=== PATIENT | male | born 1980 | race Caucasian/White ===

== ENCOUNTER 2023-10-16 08:48 | Observation (INO) ==
--- NOTE | 2023-10-16 09:00 | Emergency Department Note ---
ED Provider Note History of Present Illness Chief Complaint: Wound Stated Complaint: SPLIT EAR IN HALF Time Seen by Provider: 10/16/23 09:00 This is a 43-year-old male with history of hypertension who presents to the emergency department with a right ear laceration, right-sided head pain, secondary to an injury that occurred at work. He works at [employer]. He states that he was carrying something up a ladder. At the top of the ladder was a concrete access point. His hand missed the last rung at the top of the ladder and he fell backwards, hit his right ear/right head off the concrete opening/metal beam, and then fell around 8 feet to the ground. He landed on his right side. He does not believe he hit his head off the ground. No loss of consciousness. He notes a laceration to his right ear which has been bleeding. He has some pain in this region. Has not noticed any neck pain, back pain, chest pain, shortness of breath, abdominal pain. He can feel waves of nausea, and going now. Denies any numbness tingling or weakness in his upper or lower extremities. Has been able to walk. Does not take blood thinners. Home Medications Medication Instructions Recorded Confirmed Type escitalopram oxalate 10 mg tablet 10 mg PO DAILY #90 tabs 09/06/23 10/16/23 Rx cetirizine 10 mg tablet (Zyrtec) 10 mg PO DAILY PRN Allergy Symptoms 09/11/23 10/16/23 History telmisartan 40 mg tablet 40 mg PO DAILY #90 tabs 10/04/23 10/16/23 Rx amoxicillin 875 mg-potassium 1 tab PO Q12H facial laceration 10/16/23 Rx clavulanate 125 mg tablet #20 tabs hydrocodone 5 mg-acetaminophen 325 1 tab PO Q4H PRN pain #14 tabs 10/16/23 Rx mg tablet Allergies Allergy/AdvReac Type Severity Reaction Status Date / Time bee venom protein (honey bee) Allergy Mild Verified 10/16/23 15:12 No Known Drug Allergies Allergy Unknown Verified 10/16/23 15:12 Past Med/Surg History Medical History (Updated 10/16/23 @ 14:24 by Kevin Valenzuela MD) Encounter for pre-operative examination Alcohol use Tobacco dependence due to chewing tobacco SHAHIDA (obstructive sleep apnea) Central serous retinopathy Anxiety Hypertension Surgical History No pertinent past surgical history Family History Father Lung cancer Grandfather Lung cancer Denies family history of Ovarian cancer Prostate cancer Myocardial infarction Breast cancer Colorectal cancer Social History Smoking Status: Current every day smoker Tobacco Type: Smokeless Tobacco (Dip or Chew) Age Quit Using Tobacco: 29; packs per day: 1; Cigarettes Per Day: currently chews; Do You Dip or Chew Tobacco: Yes; Hx Alcohol Use: Yes Alcohol type: beer Alcohol Intake Frequency: 4 or More x per/Week Alcohol Intake Frequency Comment: nightly Hx Substance Use: No Preferred Language: Norwegian Visual Impairment: No Limitations Hearing Ability: Normal 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 Beliefs That Will Affect Care: None marital status: Current Living Situation: Spouse Current Living Situation Comment: lives w/ spouse kids current occupational status: employed current occupation: [employer] How many Children do You have: 2 Feels Safe at Home: Yes Diet: regular caffeine: Yes during the past year weight has: remained stable Dental Care, Regularly: Yes Physical Activity Frequency: Daily Physical Exam Vital Signs Vital Signs - 24 hr 10/16/23 08:51 10/16/23 09:59 10/16/23 10:00 Temperature 98.2 F Temperature Source Temporal Artery Scan Pulse Rate 106 H 89 92 H Pulse Rate [Apical] Pulse Rate from SpO2 Sensor 89 90 Respiratory Rate 14 20 20 Respiratory Effort / Characteristics Respiratory Depth Blood Pressure 172/117 H Blood Pressure [Left Arm] Blood Pressure [Right Arm] Blood Pressure Mean 135 Blood Pressure Mean [Left Arm] Blood Pressure Mean [Right Arm] Blood Pressure Position [Right Arm] Pulse Oximetry 97 97 96 Oxygen Delivery Method Room Air Sepsis New/Unexplained Change in Mental Status No Sepsis Action Taken by Nursing No Action Required 10/16/23 10:02 10/16/23 10:10 10/16/23 10:20 Temperature Temperature Source Pulse Rate 91 H 87 88 Pulse Rate [Apical] Pulse Rate from SpO2 Sensor 87 88 Respiratory Rate 20 19 Respiratory Effort / Characteristics Respiratory Depth Blood Pressure Blood Pressure [Left Arm] Blood Pressure [Right Arm] Blood Pressure Mean Blood Pressure Mean [Left Arm] Blood Pressure Mean [Right Arm] Blood Pressure Position [Right Arm] Pulse Oximetry 95 95 Oxygen Delivery Method Sepsis New/Unexplained Change in Mental Status Sepsis Action Taken by Nursing 10/16/23 10:30 10/16/23 10:40 10/16/23 10:50 Temperature Temperature Source Pulse Rate 90 87 78 Pulse Rate [Apical] Pulse Rate from SpO2 Sensor 93 H 87 82 Respiratory Rate 26 H 18 23 Respiratory Effort / Characteristics Respiratory Depth Blood Pressure Blood Pressure [Left Arm] Blood Pressure [Right Arm] Blood Pressure Mean Blood Pressure Mean [Left Arm] Blood Pressure Mean [Right Arm] Blood Pressure Position [Right Arm] Pulse Oximetry 94 94 95 Oxygen Delivery Method Sepsis New/Unexplained Change in Mental Status Sepsis Action Taken by Nursing 10/16/23 11:00 10/16/23 11:14 10/16/23 11:20 Temperature Temperature Source Pulse Rate 85 Pulse Rate [Apical] Pulse Rate from SpO2 Sensor 85 88 93 H Respiratory Rate 18 Respiratory Effort / Characteristics Respiratory Depth Blood Pressure Blood Pressure [Left Arm] Blood Pressure [Right Arm] Blood Pressure Mean Blood Pressure Mean [Left Arm] Blood Pressure Mean [Right Arm] Blood Pressure Position [Right Arm] Pulse Oximetry 94 92 96 Oxygen Delivery Method Sepsis New/Unexplained Change in Mental Status Sepsis Action Taken by Nursing 10/16/23 11:30 10/16/23 11:40 10/16/23 11:50 Temperature Temperature Source Pulse Rate 99 H 94 H 88 Pulse Rate [Apical] Pulse Rate from SpO2 Sensor 97 H 98 H 90 Respiratory Rate 13 23 12 Respiratory Effort / Characteristics Respiratory Depth Blood Pressure Blood Pressure [Left Arm] Blood Pressure [Right Arm] Blood Pressure Mean Blood Pressure Mean [Left Arm] Blood Pressure Mean [Right Arm] Blood Pressure Position [Right Arm] Pulse Oximetry 95 95 95 Oxygen Delivery Method Sepsis New/Unexplained Change in Mental Status Sepsis Action Taken by Nursing 10/16/23 12:05 10/16/23 12:10 10/16/23 12:30 Temperature Temperature Source Pulse Rate 91 H 91 H 86 Pulse Rate [Apical] Pulse Rate from SpO2 Sensor 90 88 88 Respiratory Rate 21 15 23 Respiratory Effort / Characteristics Respiratory Depth Blood Pressure Blood Pressure [Left Arm] Blood Pressure [Right Arm] Blood Pressure Mean Blood Pressure Mean [Left Arm] Blood Pressure Mean [Right Arm] Blood Pressure Position [Right Arm] Pulse Oximetry 94 94 95 Oxygen Delivery Method Sepsis New/Unexplained Change in Mental Status Sepsis Action Taken by Nursing 10/16/23 13:00 10/16/23 13:11 10/16/23 13:11 Temperature Temperature Source Pulse Rate 83 92 H Pulse Rate [Apical] Pulse Rate from SpO2 Sensor 85 90 Respiratory Rate 24 13 Respiratory Effort / Characteristics Respiratory Depth Blood Pressure 136/88 Blood Pressure [Left Arm] Blood Pressure [Right Arm] Blood Pressure Mean 103 Blood Pressure Mean [Left Arm] Blood Pressure Mean [Right Arm] Blood Pressure Position [Right Arm] Pulse Oximetry 94 94 Oxygen Delivery Method Sepsis New/Unexplained Change in Mental Status Sepsis Action Taken by Nursing 10/16/23 13:12 10/16/23 13:30 10/16/23 14:00 Temperature Temperature Source Pulse Rate 83 81 Pulse Rate [Apical] 93 H Pulse Rate from SpO2 Sensor 83 81 Respiratory Rate 15 7 L 13 Respiratory Effort / Characteristics Non-Labored Respiratory Depth Normal Blood Pressure Blood Pressure [Left Arm] 136/88 Blood Pressure [Right Arm] Blood Pressure Mean Blood Pressure Mean [Left Arm] 104 Blood Pressure Mean [Right Arm] Blood Pressure Position [Right Arm] Pulse Oximetry 96 94 96 Oxygen Delivery Method Room Air Sepsis New/Unexplained Change in Mental Status Sepsis Action Taken by Nursing 10/16/23 14:54 Temperature 98.6 F Temperature Source Oral Pulse Rate Pulse Rate [Apical] 95 H Pulse Rate from SpO2 Sensor Respiratory Rate 18 Respiratory Effort / Characteristics Respiratory Depth Blood Pressure Blood Pressure [Left Arm] Blood Pressure [Right Arm] 135/88 Blood Pressure Mean Blood Pressure Mean [Left Arm] Blood Pressure Mean [Right Arm] 103 Blood Pressure Position [Right Arm] Semi-fowlers Pulse Oximetry 95 Oxygen Delivery Method Room Air Sepsis New/Unexplained Change in Mental Status Sepsis Action Taken by Nursing CONSTITUTIONAL: Well developed, well nourished, minimally uncomfortable, otherwise nontoxic HEAD: There is tenderness in the right skull/temporal region. EYES: PERRL, conjunctivae normal, extraocular muscles intact. No nystagmus EARS/NOSE/MOUTH/THROAT: Right external ear with a large gaping horizontal through and through laceration beginning just superior to the anterior tragus, extending through the helix and antihelix with persistent bleeding. The cartilage is also lacerated. There is a small amount of hematoma/soft tissue swelling superior to the laceration. No discharge or hemotympanum on the left side. Nose with no injury or epistaxis. No dental abnormalities. No oral injuries. No TMJ tenderness or dysfunction NECK: No spinous process tenderness. Placed in c-collar. RESPIRATORY: Breathing unlabored and symmetric. Lungs clear to auscultation bilaterally. CARDIOVASCULAR: Tachycardic rate and regular rhythm. No murmurs, rubs, or gallops. CHEST: Nontender, no crepitus or ecchymosis. ABDOMEN: Soft, nontender. No masses or ecchymosis. No rigidity. No CVA tenderness bilaterally. MUSCULOSKELETAL: Moves bilateral upper and lower extremities at all joints without pain or difficulty. Back: no thoracic, lumbar, or sacral midline tenderness noted, no step-off deformities. Pelvis stable, nontender SKIN: [place], warm, dry. NEUROLOGIC: Alert and oriented x 3. GCS 15. Gaze is conjugate. Speech is normal. Visual palsy. No sensory deficits in bilateral upper or lower extremities. PSYCHIATRIC: Appropriate. Normal affect. Course Administered Medications Sodium Chloride (Nss) 1,000 mls @ 125 mls/hr IV .Q8H NATASHA Stop: 11/15/23 12:29 Last Infusion: 10/16/23 14:59 Dose: 0 mls/hr Documented By: Admin: 10/16/23 12:26 Dose: 125 mls/hr Documented By: GABRIELLA Lactated Ringer's (Lr) 1,000 mls @ 15 mls/hr IV .Q24H NATASHA Stop: 11/15/23 14:59 Last Admin: 10/16/23 14:58 Dose: 15 mls/hr Documented By: POOJA Discontinued Medications Cefazolin Sodium (Ancef 2000mg) 2,000 mg in 15 mls @ 3.75 mls/min IV NOW STA Stop: 10/16/23 12:24 Last Admin: 10/16/23 12:26 Dose: 3.75 mls/min Documented By: GABRIELLA Ioversol (Optiray 320 500ml) 94 ml IV ONCE ONE Stop: 10/16/23 09:48 Last Admin: 10/16/23 09:48 Dose: 94 ml Documented By: FIOR Lidocaine HCl (Xylocaine 1%/Sod Bicarb 20 Ml Vial) 20 ml INFIL NOW ONE Stop: 10/16/23 09:19 Last Admin: 10/16/23 12:27 Dose: Not Given Documented By: GABRIELLA Morphine Sulfate (Morphine Sulfate 4 Mg/Ml 1 Ml Carp\Vial) 4 mg IV NOW STA Stop: 10/16/23 09:18 Last Admin: 10/16/23 10:00 Dose: 4 mg Documented By: CAROLINA Ondansetron HCl (Ondansetron Inj 2 Mg/Ml 2 Ml Vial) 4 mg IV NOW STA Stop: 10/16/23 09:18 Last Admin: 10/16/23 10:00 Dose: 4 mg Documented By: CAROLINA Medical Decision Making Differential Diagnosis Fracture, dislocation, subluxation, contusion, hematoma, laceration, auricular hematoma, intracranial hemorrhage, solid organ injury, pneumothorax, hemothorax, pulmonary contusion, other pathology Laboratory Data 10/16/23 09:25 10/16/23 09:25 Lab Results 10/16/23 10/16/23 10/16/23 Range/Units 09:25 09:27 11:08 WBC 6.28 (4.8-10.8) K/ul RBC 4.70 (4.70-6.10) M/uL Hgb 14.3 (14.0-18.0) g/dl POC Hgb 13.9 L (14.0-18.0) g/dl Hct 41.4 L (42.0-52.0) % POC Hct 41 L (42-52) % MCV 88.1 (80.0-100.0) fL MCH 30.4 (25.0-34.0) pg MCHC 34.5 (32.0-36.0) g/dL RDW Std Deviation 41.5 (36.4-46.3) fL RDW Coeff of Pal 12.9 (11.5-14.5) % Plt Count 232 (130-400) K/uL MPV 9.1 L (9.4-12.4) fL Immature Gran % (Auto) 0.8 % Neut % (Auto) 53.5 % Lymph % (Auto) 38.1 % Citrus % (Auto) 6.7 % Eos % (Auto) 0.6 % Baso % (Auto) 0.3 % Neut # (Auto) 3.36 (1.40-6.50) K/uL Lymph # (Auto) 2.39 (1.20-3.40) K/uL Citrus # (Auto) 0.42 (0.11-0.59) K/uL Eos # (Auto) 0.04 (0.00-0.50) K/uL Baso # (Auto) 0.02 (0.00-0.20) K/uL Immature Gran # (Auto) 0.05 (0.01-0.20) K/uL PT 10.8 (9.0-12.0) Seconds INR 1.0 (0.9-1.1) APTT 30 (21-31) Seconds PTT Ratio 1.1 POC Sodium 139 (135-144) mmol/L Sodium 139 (136-145) mmol/L POC Potassium 3.8 (3.3-5.0) mmol/L Potassium 3.8 (3.5-5.1) mmol/L POC Chloride 101 (101-112) mmol/L Chloride 102 (98-107) mmol/L Carbon Dioxide 26 (21-32) mmol/L POC Total CO2 25 (24-31) mmol/L Anion Gap 11 (3-11) POC Anion Gap 18.0 (16-25) mmol/L POC BUN 14 (7-18) mg/dl BUN 15 (6-23) mg/dl Creatinine 0.88 (0.6-1.4) mg/dl POC Creatinine 0.9 (0.6-1.3) mg/dl Est Cr Clr Drug Dosing 128.0 ml/min Est GFR ( Amer) 121.1 ml/min Est GFR (Non-Af Amer) 104.5 ml/min BUN/Creatinine Ratio 17.0 (10-20) Glucose 103 H (70-99(Fasting)) mg/dl POC Glucose (other) 106 H (70-99) mg/dl Calcium 9.1 (8.6-10.3) mg/dl POC Ioniz Calcium Jaz 1.10 L (1.12-1.32) mmol/l Total Bilirubin 0.7 (0.2-1.0) mg/dl AST 17 (13-39) U/L ALT 19 (7-52) U/L Alkaline Phosphatase 97 (34-104) U/L Total Protein 7.6 (6.0-8.3) gm/dl Albumin 4.6 (3.4-5.0) gm/dl Globulin 3.0 (2.5-4.0) gm/dl Albumin/Globulin Ratio 1.5 (0.9-2) Urine Color Yellow Urine Appearance Clear (Clear) Urine pH 5.5 (4.5-7.5) Ur Specific [place] 1.045 H (1.000-1.030) Urine Protein Negative (Negative) Urine Glucose (UA) Negative (Negative) Urine Ketones Negative (Negative) Urine Blood Negative (Negative) Urine Nitrite Negative (Negative) Urine Bilirubin Negative (Negative) Urine Urobilinogen Negative (Negative) Ur Leukocyte Esterase Negative (Negative) Imaging Data Radiologist's Impression: Head CT 10/16/23 09:12 CT OF THE HEAD WITHOUT CONTRAST CLINICAL HISTORY: R side of head trauma, fall 8 feet COMPARISON STUDY: No previous studies for comparison. TECHNIQUE: Helical axial images of the head were obtained without IV contrast. Automated exposure control was utilized for the study. A dose lowering technique was utilized adhering to the principles of ALARA. FINDINGS: No acute intracranial hemorrhage, midline shift or mass effect is present. The ventricular system is unremarkable. The basal cisterns are patent. No extra-axial collections are present. There are no findings to suggest acute dural sinus thrombosis or acute territorial infarct. No significant calvarial abnormalities are present. Visualized portions of the sinuses and mastoid air cells are clear. There is apparent right ear soft tissue swelling. IMPRESSION: 1. No acute intracranial findings. 2. No calvarial fractures. ACT 112: Negative or not required by law. Electronically signed by: Luis Eduardo Jackson M.D. 10/16/2023 10:18 AM Abdomen/Pelvis CT 10/16/23 09:[address] WITH IV CONTRAST CT DOSE: HISTORY: R side of head trauma, fall 8 feet TECHNIQUE: Multiaxial CT images of the abdomen and pelvis were performed following the use of intravenous contrast. A dose lowering technique was utilized adhering to the principles of ALARA. COMPARISON STUDY: None. FINDINGS: The lung bases will be reported on the same day chest CTA. No pneumoperitoneum. No pneumatosis. There is a right L5 pars defect noted. No acute fractures identified. Mild hepatic steatosis. The main portal vein is patent. The gallbladder, spleen, pancreas, adrenal glands, and kidneys are unremarkable. No hydronephrosis. Mild bilateral perinephric edema. This may be chronic. No retroperitoneal hematoma lymphadenopathy. Normal caliber abdominal aorta. No pelvic free fluid. Mild bladder wall thickening. The prostate gland is normal in size. No bowel wall thickening or obstruction. Normal appendix. IMPRESSION: 1. No acute traumatic process within the abdomen or pelvis. 2. Mild bladder wall thickening. This may be due to underdistention. Recommend correlation with urinalysis to exclude a cystitis. 3. Additional findings as described above. ACT 112: Negative or not required by law. Electronically signed by: Jose F Tejeda M.D. 10/16/2023 10:[address] 10/16/23 09:[address] DOSE: 4376.07 mGy.cm HISTORY: R side of head trauma, fall 8 feet TECHNIQUE: Multiaxial CT images of the cervical spine were performed and reformatted in the sagittal and coronal plane without the use of contrast. A dose lowering technique was utilized adhering to the principles of ALARA. COMPARISON: None. FINDINGS: No fractures. No subluxation. Prevertebral soft tissues and the C1-C2 interval are intact. No pneumothorax. IMPRESSION: No fractures within the cervical spine. ACT 112: Negative or not required by law. Electronically signed by: Jose F Tejeda M.D. 10/16/2023 10:[address] 10/16/23 09:17 CT OF THE CHEST WITH IV CONTRAST CLINICAL HISTORY: R side of head trauma, fall 8 feet COMPARISON STUDY: No previous studies for comparison. TECHNIQUE: Following IV administration of 94 mL of Optiray, helical axial images of the chest were obtained. Sagittal and coronal reconstructions were viewed as well as maximal intensity projections on an independent 3-D workstation. Automated exposure control was utilized for the study. A dose lowering technique was utilized adhering to the principles of ALARA. FINDINGS: There is no evidence for traumatic injury to the thoracic aorta. Size of the heart is normal. There is no pericardial effusion. Central airways are patent. No pneumothorax, pleural effusion or pulmonary contusion is present. Subpleural groundglass opacities reflect atelectasis. No acute rib or thoracic spine fracture is present. The abdomen and pelvis CT will be reported separately. IMPRESSION: No acute traumatic findings within the chest. ACT 112: Negative or not required by law. Electronically signed by: Luis Eduardo Jackson M.D. 10/16/2023 10:[address] 10/16/23 09:[address] DOSE: HISTORY: R side of head trauma, fall 8 feet TECHNIQUE: Multiaxial CT images of the maxillofacial region were performed and reformatted in the coronal plane without the use of contrast. A dose lowering technique was utilized adhering to the principles of ALARA. COMPARISON: None. FINDINGS: The visualized cervical spine, skull base, pterygoid plates, nasal bones, lamina papyracea, orbital floors, mandible, and zygomatic arches are intact. No fractures. The orbits are unremarkable. Soft tissue swelling within the right ear with a soft tissue laceration. This is partially visualized on this study. The underlying right mastoid bone is intact. IMPRESSION: 1. No fractures within the maxillofacial region. 2. Soft tissue swelling within the right ear with a soft tissue laceration. This is partially visualized on this study ACT 112: Negative or not required by law. Electronically signed by: Jose F Tejeda M.D. 10/16/2023 10:20 AM MDM Narrative 43-year-old male presents to the emergency department with a right ear laceration with associated pain in this region now waves of nausea and pain secondary to hitting his head at the top of a ladder and falling 8 feet onto the ground. See above for further details. Patient appears minimally uncomfortable but certainly nontoxic. He is slightly tachycardic and hypertensive on exam. An IV was inserted and labs were obtained. Right ear laceration is through and through, involving the cartilage, quite large and complex Patient was given morphine for pain control. Case reviewed with ED attending Dr. Cheek. We decided to obtain CT scan of the head, face, neck, chest abdomen pelvis based on the mechanism of injury and potential for distracting injury. Labs: No leukocytosis. Minimal anemia hemoglobin of 13.9. No thrombocytopenia. Coags normal. No electrolyte disturbance. Renal function normal. Urine without evidence of infection or blood. CT imaging is negative for acute process. There is no evidence of cystitis on urinalysis. Patient's wound is complex, large, and felt to be better managed by a specialist possibly in the OR. I contacted Dr. Morton who is on-call for oral maxillofacial surgery/plastics who evaluated the patient at bedside and requested to repair this in the OR. Per Dr. Morton, patient was given a dose of IV Ancef in the emergency department. He was kept NPO. He was given maintenance fluids. He did not require any additional pain medication. Patient was agreeable with this plan. Please refer to Dr. Morton's note for definitive management and follow-up. Impression Complex laceration of right ear, Contusion of parietal region of scalp, Fall from ladder Discharge Plan Visit Data Chief Complaint: Wound Stated Complaint: SPLIT EAR IN HALF ED Provider: Mikal Cheek ED Midlevel Provider: Sameer Rain Discharge Problem: Complex laceration of right ear, Contusion of parietal region of scalp, Fall from ladder Patient Disposition: Being Evaluated by Surgeon Condition: Good Discharge Instructions Interventions: ED Discharge Assessment Last Done: 10/16/23 14:47 Discharge Problem: Complex laceration of right ear Qualifiers: Encounter type: initial encounter Qualified Code(s): S01.311A - Laceration without foreign body of right ear, initial encounter Contusion of parietal region of scalp Qualifiers: Encounter type: initial encounter Qualified Code(s): S00.03XA - Contusion of scalp, initial encounter Fall from ladder Qualifiers: Encounter type: initial encounter Qualified Code(s): W11.XXXA - Fall on and from ladder, initial encounter
[2023-10-16 09:39] LABS: iSTAT Creatinine 0.9 mg/dl (0.6-1.3); iSTAT Hemoglobin 13.9 g/dl (14.0-18.0); iSTAT Ionized Calcium 1.1 mmol/l (1.12-1.32); iSTAT Potassium 3.8 mmol/L (3.3-5.0)
[2023-10-16] MEDS: OPTIRAY 320 500ml IV ONE (09:48)
[2023-10-16 09:59] LABS: Basophils # (auto) 0.02 K/uL (0.00-0.20); Basophils % (auto) 0.3 %; Eosinophils # (auto) 0.04 K/uL (0.00-0.50); Eosinophils % (auto) 0.6 %; Hematocrit (blood only) 41.4 % (42.0-52.0); Hemoglobin 14.3 g/dl (14.0-18.0); Immature Granulocytes # (auto) 0.05 K/uL (0.01-0.20); Immature Granulocytes % (auto) 0.8 %; Lymphocytes # (auto) 2.39 K/uL (1.20-3.40); Lymphocytes % (auto) 38.1 %; Mean Corpuscular Hemoglobin 30.4 pg (25.0-34.0); Mean Corpuscular Hgb Conc 34.5 g/dL (32.0-36.0); Mean Corpuscular Volume 88.1 fL (80.0-100.0); Mean Platelet Volume 9.1 fL (9.4-12.4); Monocytes # (auto) 0.42 K/uL (0.11-0.59); Monocytes % (auto) 6.7 %; Neutrophils # (auto) 3.36 K/uL (1.40-6.50); Neutrophils % (auto) 53.5 %; Platelet Count 232 K/uL (130-400); RDW Coefficient of Variation 12.9 % (11.5-14.5); RDW Standard Deviation 41.5 fL (36.4-46.3); White Blood Count 6.28 K/ul (4.8-10.8)
[2023-10-16] MEDS: ONDANSETRON INJ 2 MG/ML 2 ML VIAL IV STA (10:00)
[2023-10-16] MEDS: MoRPHine SULFATE 4 MG/ML 1 ML CARP\\VIAL IV STA (10:00)
--- NOTE | 2023-10-16 10:11 | CT Scan Report ---
CERVICAL SPINE CT CT DOSE: 4376.07 mGy.cm HISTORY: R side of head trauma, fall 8 feet TECHNIQUE: Multiaxial CT images of the cervical spine were performed and reformatted in the sagittal and coronal plane without the use of contrast. A dose lowering technique was utilized adhering to th e principles of ALARA. COMPARISON: None. FINDINGS: No fractures. No subluxation. Prevertebral soft tissues and the C1-C2 interval are intact. No pneumothorax. IMPRESSION: No fractures within the cervical spine. ACT 112: Negative or not required by law. Electronically signed by: Jose F Tejeda M.D. 10/16/2023 10:10 AM
[2023-10-16 10:15] LABS: Albumin Globulin Ratio 1.5 (0.9-2); Albumin Level 4.6 gm/dl (3.4-5.0); Bilirubin,Total 0.7 mg/dl (0.2-1.0); Calcium 9.1 mg/dl (8.6-10.3); Est GFR (African American) 121.1 ml/min; Est GFR (Non-African American) 104.5 ml/min; Potassium 3.8 mmol/L (3.5-5.1); Total Protein 7.6 gm/dl (6.0-8.3)
--- NOTE | 2023-10-16 10:17 | CT Scan Report ---
ABDOMEN AND PELVIS CT WITH IV CONTRAST CT DOSE: HISTORY: R side of head trauma, fall 8 feet TECHNIQUE: Multiaxial CT images of the abdomen and pelvis were performed following the use of intrave nous contrast. A dose lowering technique was utilized adhering to the principles of ALARA. COMPARISON STUDY: None. FINDINGS: The lung bases will be reported on the same day chest CTA. No pneumoperitoneum. No pneumato sis. There is a right L5 pars defect noted. No acute fractures identified. Mild hepatic steatosis. Th e main portal vein is patent. The gallbladder, spleen, pancreas, adrenal glands, and kidneys are unre markable. No hydronephrosis. Mild bilateral perinephric edema. This may be chronic. No retroperitonea l hematoma lymphadenopathy. Normal caliber abdominal aorta. No pelvic free fluid. Mild bladder wall t hickening. The prostate gland is normal in size. No bowel wall thickening or obstruction. Normal appe ndix. IMPRESSION: 1. No acute traumatic process within the abdomen or pelvis. 2. Mild bladder wall thickening. This may be due to underdistention. Recommend correlation with urina lysis to exclude a cystitis. 3. Additional findings as described above. ACT 112: Negative or not required by law. Electronically signed by: Jose F Tejeda M.D. 10/16/2023 10:15 AM
--- NOTE | 2023-10-16 10:19 | CT Scan Report ---
CT OF THE HEAD WITHOUT CONTRAST CLINICAL HISTORY: R side of head trauma, fall 8 feet COMPARISON STUDY: No previous studies for comparison. TECHNIQUE: Helical axial images of the head were obtained without IV contrast. Automated exposure con trol was utilized for the study. A dose lowering technique was utilized adhering to the principles o f ALARA. FINDINGS: No acute intracranial hemorrhage, midline shift or mass effect is present. The ventricular system is unremarkable. The basal cisterns are patent. No extra-axial collections are present. There are no findings to suggest acute dural sinus thrombosis or acute territorial infarct. No significant calvarial abnormalities are present. Visualized portions of the sinuses and mastoid air cells are pete ar. There is apparent right ear soft tissue swelling. IMPRESSION: 1. No acute intracranial findings. 2. No calvarial fractures. ACT 112: Negative or not required by law. Electronically signed by: Luis Eduardo Jackson M.D. 10/16/2023 10:18 AM
--- NOTE | 2023-10-16 10:21 | CT Scan Report ---
MAXILLOFACIAL CT CT DOSE: HISTORY: R side of head trauma, fall 8 feet TECHNIQUE: Multiaxial CT images of the maxillofacial region were performed and reformatted in the cor onal plane without the use of contrast. A dose lowering technique was utilized adhering to the princ iples of RUBEN. COMPARISON: None. FINDINGS: The visualized cervical spine, skull base, pterygoid plates, nasal bones, lamina papyracea, orbital floors, mandible, and zygomatic arches are intact. No fractures. The orbits are unremarkable . Soft tissue swelling within the right ear with a soft tissue laceration. This is partially visualiz ed on this study. The underlying right mastoid bone is intact. IMPRESSION: 1. No fractures within the maxillofacial region. 2. Soft tissue swelling within the right ear with a soft tissue laceration. This is partially visuali zed on this study ACT 112: Negative or not required by law. Electronically signed by: Jose F Tejeda M.D. 10/16/2023 10:20 AM
[2023-10-16 10:22] LABS: Partial Thromboplastin Ratio 1.1; Partial Thromboplastin Time 30 Seconds (21-31); Prothrombin Time 10.8 Seconds (9.0-12.0)
--- NOTE | 2023-10-16 10:23 | CT Scan Report ---
CT OF THE CHEST WITH IV CONTRAST CLINICAL HISTORY: R side of head trauma, fall 8 feet COMPARISON STUDY: No previous studies for comparison. TECHNIQUE: Following IV administration of 94 mL of Optiray, helical axial images of the chest were o btained. Sagittal and coronal reconstructions were viewed as well as maximal intensity projections o n an independent 3-D workstation. Automated exposure control was utilized for the study. A dose low ering technique was utilized adhering to the principles of ALARA. FINDINGS: There is no evidence for traumatic injury to the thoracic aorta. Size of the heart is norm al. There is no pericardial effusion. Central airways are patent. No pneumothorax, pleural effusion o r pulmonary contusion is present. Subpleural groundglass opacities reflect atelectasis. No acute rib or thoracic spine fracture is present. The abdomen and pelvis CT will be reported separately. IMPRESSION: No acute traumatic findings within the chest. ACT 112: Negative or not required by law. Electronically signed by: Luis Eduardo Jackson M.D. 10/16/2023 10:22 AM
[2023-10-16 11:35] LABS: Appearance Urine Clear (Clear); Bilirubin Urine Negative (Negative); Blood Urine Negative (Negative); Color Urine Yellow; Glucose Urine UA Negative (Negative); Ketones Urine Negative (Negative); Leukocyte Esterase Urine Negative (Negative); Nitrite Urine Negative (Negative); Protein Urine Negative (Negative); Specific Gravity Urine 1.045 (1.000-1.030); Urobilinogen Urine Negative (Negative); pH Urine 5.5 (4.5-7.5)
[2023-10-16] MEDS: SODIUM CHLORIDE 0.9% 1,000 ML IV SCH (12:26)
[2023-10-16] MEDS: ceFAZolin 2000MG 2,000 MG/15 ML SYR IV STA (12:26)
[2023-10-16] MEDS: XYLOCAINE 1%/SOD BICARB 20 ML VIAL INFIL ONE (12:27)
--- NOTE | 2023-10-16 12:36 | Oral/Maxillofacial Progress Nt ---
Date of Service October 16, 2023 Assessment & Plan (1) Fall from ladder: (2) Contusion of parietal region of scalp: (3) Complex laceration of right ear: (4) Alcohol use: (5) Tobacco dependence due to chewing tobacco: (6) SHAHIDA (obstructive sleep apnea): (7) Central serous retinopathy: (8) Hypertension: (9) Anxiety: Subjective This is a 43-year-old male with history of hypertension who presents to the emergency department with a right ear laceration, right-sided head pain, secondary to an injury that occurred at work. He works at [email or web address]. He states that he was carrying something up a ladder. At the top of the ladder was a concrete access point. His hand missed the last rung at the top of the ladder and he fell backwards, hit his right ear/right head off the concrete opening, and then fell around 8 feet to the ground. He landed on his right side. He does not believe he hit his head off the ground. No loss of consciousness. He notes a laceration to his right ear which has been bleeding. He has some pain in this region. Has not noticed any neck pain, back pain, chest pain, shortness of breath, abdominal pain. He can feel waves of nausea, and going now. Denies any numbness tingling or weakness in his upper or lower extremities. Has been able to walk. Does not take blood thinners. This is a very complex right through-through ear laceration from the anterior to to posterior transecting the fuentes and ear cartilage. The ear canal is not effected. The flap has a good blood supply. Given the complexity of the laceration doing the repair in the OR. I reviewed with with Maged--he last ate at 6:30 am I discussed the surgery and GA Treatment Plan: Set up with general anesthesia in hospital due to complexity of the procedure I reviewed the treatment plan and consent with the patient. Understanding was expressed. Time was given for questions regarding the surgery, risks and post op care. Discussed alternative to treatment--procedure as planned, Do not do surgery Risks discussed: Bleeding,Pain,swelling,infection, delayed healing, nerve injury to face, area which could be permanent (rare). TMJ, jaw stiffness, change in bite (rare), ear pain (referred). need for revision, scaring, cartilage infection Home care reviewed: Wound care and follow up care with Dr Morton. Discussed activity level, driving/work during the early post op period. Physical Exam Physical Exam: Physical Exam Constitutional WD/WN, vitals as above Eyes PERRL, conjunctivae normal, anicteric sclerae Ear extensive complex right side ear laceration including the ear cartilage Neck trachea midline, no thyromegaly Thyroid: normal thyroid Respiratory normal respiratory effort, lungs clear to auscultation Auscultation: lungs clear to auscultation bilaterally Cardiovascular RRR, no murmur, no edema Rate/Rhythm: regular rate and regular rhythm Gastrointestinal (Abdomen) normal bowel sounds, soft, nontender, no hepatosplenomegaly Musculoskeletal no cyanosis or clubbing, extremities motor strength 5/5 Skin no rashes, warm and dry Neurologic PERRL, EOMI, accommodation nl, no face palsy, no dysarthria Cranial Nerves: sense of smell intact, PERRL, normal accommodation, EOM intact bilaterally, normal facial strength, tongue midline, normal gag reflex, normal hearing, able to rotate head bilaterally, able to elevate shoulders bilaterally, no nystagmus and symmetric palate elevation Psychiatric A+Ox3, euthymic affect Orientation: cooperative Lymphatic no cervical or axillary lymphadenopathy Results & Data Vital Signs (Past 12 Hours) Vital Signs Temp Pulse Resp BP Pulse Ox O2 Del Method 10/16/23 12:10 91 H 15 94 10/16/23 12:05 91 H 21 94 10/16/23 11:50 88 12 95 10/16/23 11:40 94 H 23 95 10/16/23 11:30 99 H 13 95 10/16/23 11:20 96 10/16/23 11:14 92 10/16/23 11:00 85 18 94 10/16/23 10:50 78 23 95 10/16/23 10:40 87 18 94 10/16/23 10:30 90 26 H 94 10/16/23 10:20 88 19 95 10/16/23 10:10 87 20 95 10/16/23 10:02 91 H 10/16/23 10:00 92 H 20 96 10/16/23 09:59 89 20 97 10/16/23 08:51 36.8 C 106 H 14 172/117 H 97 Room Air PG Care Time/CCT Total # of Minutes Spent Total Time Spent with Patient: Total time spent is greater than 50% in coordination of care (as documented) at patient's floor/unit and/or counseling patient: [place] [address] SUB INP/OBS CARE 2/35MIN Patient Type New Medical Decision Making Straight Forward Diagnoses Fall from ladder W11.XXXA Encounter type: initial encounter Contusion of parietal region of scalp S00.03XA Encounter type: initial encounter Complex laceration of right ear S01.311A Encounter type: initial encounter Alcohol use Z78.9 Tobacco dependence due to chewing tobacco F17.220 SHAHIDA (obstructive sleep apnea) G47.33 Central serous retinopathy H35.719 Hypertension I10 Anxiety F41.9 CPT Codes COMPLEX REPAIR EYELID/NOSE/EAR/LIP 2.6-7.5 CM - 39018 ([id number]) (1) Fall from ladder Encounter type: initial encounter Qualified Code(s): W11.XXXA - Fall on and from ladder, initial encounter (2) Contusion of parietal region of scalp Encounter type: initial encounter Qualified Code(s): S00.03XA - Contusion of scalp, initial encounter (3) Complex laceration of right ear Encounter type: initial encounter Qualified Code(s): S01.311A - Laceration without foreign body of right ear, initial encounter
--- NOTE | 2023-10-16 14:23 | Anesthesiology Consultation ---
Date of Service October 16, 2023 Assessment & Plan (1) Encounter for pre-operative examination: Chart Review Chart Review: Acceptable Risk for Surgery and Patient NOT seen in Pre Admission Testing Consults Requested none History Surgery Operation Date: 10/16/23 09:30 Proposed Procedures p Right Complex Ear Laceration Repair - Adalberto Tyrese Morton, DMD Height/Weight Height: 5 ft 9 in Weight: 105.1 kg Allergies Allergy/AdvReac Type Severity Reaction Status Date / Time bee venom protein (honey bee) Allergy Mild Unverified 09/11/23 17:09 No Known Drug Allergies Allergy Unknown Unverified 09/11/23 17:09 Medications Home Medications Medication Instructions Recorded Confirmed Last Taken escitalopram oxalate 10 mg tablet 10 mg PO DAILY #90 tabs 09/06/23 10/16/23 Unknown cetirizine 10 mg tablet (Zyrtec) 10 mg PO DAILY PRN Allergy Symptoms 09/11/23 10/16/23 Unknown telmisartan 40 mg tablet 40 mg PO DAILY #90 tabs 10/04/23 10/16/23 Unknown Active Medications Generic Name Dose Route Start Last Admin Trade Name Freq PRN Reason Stop Dose Admin Sodium Chloride 1,000 mls @ 125 mls/hr 10/16/23 12:30 10/16/23 12:26 Nss IV 11/15/23 12:29 125 mls/hr .Q8H NATASHA Administration Past Medical History Medical History (Updated 10/16/23 @ 14:24 by Kevin Valenzuela MD) Encounter for pre-operative examination Alcohol use Tobacco dependence due to chewing tobacco SHAHIDA (obstructive sleep apnea) Central serous retinopathy Anxiety Hypertension Past Family History Family History Father Lung cancer Grandfather Lung cancer Denies family history of Ovarian cancer Prostate cancer Myocardial infarction Breast cancer Colorectal cancer Past Surgical History Surgical History No pertinent past surgical history Past Anesthesia History No Hx of Anesthesia Complications and No Family Hx of Anesthesia Complications History of PONV No Hx of PONV and No Hx of Motion Sickness Social History Smoking Status: Current every day smoker Smoking cigarettes per day: currently chews Do You Dip or Chew Tobacco: Yes Hx Alcohol Use: Yes Alcohol type: beer Hx Substance Use: No Physical Exam Vital Signs Last Vital Signs Temp 36.8 C 10/16/23 08:51 Pulse 81 10/16/23 14:00 Resp 13 10/16/23 14:00 BP 136/88 10/16/23 13:12 Pulse Ox 96 10/16/23 14:00 O2 Del Method Room Air 10/16/23 13:12 Testing Laboratory Results 10/16/23 09:25 10/16/23 09:25 PT 10.8 Seconds (9.0-12.0) 10/16/23 09:25 INR 1.0 (0.9-1.1) 10/16/23 09:25 APTT 30 Seconds (21-31) 10/16/23 09:25 Urine Color Yellow 10/16/23 11:08 Urine Appearance Clear (Clear) 10/16/23 11:08 Urine pH 5.5 (4.5-7.5) 10/16/23 11:08 Ur Specific [place] 1.045 (1.000-1.030) H 10/16/23 11:08 Urine Protein Negative (Negative) 10/16/23 11:08 Urine Glucose (UA) Negative (Negative) 10/16/23 11:08 Urine Ketones Negative (Negative) 10/16/23 11:08 Urine Nitrite Negative (Negative) 10/16/23 11:08 Ur Leukocyte Esterase Negative (Negative) 10/16/23 11:08 10/16/23 09:27 POC Glucose (other) 106 H
[2023-10-16] MEDS ORDERED: LIDOCAINE 2% 2 ML VIAL/AMP(20MG/ML) INFIL ONE (14:52)
[2023-10-16] MEDS ORDERED: ROCURONIUM BROMIDE 10 MG/ML 5 ML VIAL IV ONE (14:52)
[2023-10-16] MEDS ORDERED: MIDAZOLAM HCL 1 MG/ML 2ML VIAL ONE (14:52)
[2023-10-16] MEDS ORDERED: PROPOFOL IV EMULSION 10 MG/ML 20 ML VIAL IV ONE (14:52)
[2023-10-16] MEDS ORDERED: GLYCOPYRROLATE 0.2 MG/ML VIAL ONE (14:52)
[2023-10-16] MEDS ORDERED: DEXAMETHASONE SOD INJ 4 MG/ML VIAL ONE (14:52)
[2023-10-16] MEDS ORDERED: ONDANSETRON INJ 2 MG/ML 2 ML VIAL ONE (14:52)
[2023-10-16] MEDS ORDERED: fentaNYL citrate PF 100 MCG/2 ML VIAL ONE (14:52)
[2023-10-16] MEDS ORDERED: SUGAMMADEX SODIUM 200 MG/2 ML VIAL IV ONE (14:58)
[2023-10-16] MEDS: LACTATED RINGER'S 1,000 ML IV SCH (14:58)
[2023-10-16] MEDS ORDERED: fentaNYL citrate PF 100 MCG/2 ML VIAL IV PRN (15:01)
[2023-10-16] MEDS ORDERED: ATROPINE SULFATE 0.1 MG/ML 10ML SYR IV PRN (15:01)
[2023-10-16] MEDS ORDERED: ONDANSETRON INJ 2 MG/ML 2 ML VIAL IV PRN (15:01)
[2023-10-16] MEDS ORDERED: ePHEDrine sulfate 50 MG/ML AMP IV PRN (15:01)
[2023-10-16] MEDS ORDERED: ACETAMINOPHEN 500 MG TAB PO PRN (17:14)
[2023-10-16] MEDS ORDERED: MoRPHine SULFATE 2 MG/ML CARP IV PRN (17:14)
[2023-10-16] MEDS ORDERED: KETOROLAC 30 MG/ML VIAL IV PRN (17:14)
[2023-10-16] MEDS ORDERED: oxyCODONE HCL IR 5 MG TAB (IMMEDIATE RELEASE) PO PRN (17:14)
[2023-10-16] MEDS: BUPIVACAINE/EPINEPHRINE 0.5% 1:200,000 1.8 ML CARP ONE (17:18)
--- NOTE | 2023-10-16 19:02 | Anesthesiology Progress Note ---
Date of Service October 16, 2023 Anesthesia Post Procedure Vital Signs Vital Signs: Temp Pulse Pulse Resp BP BP BP 10/16/23 18:40 78 18 140/86 10/16/23 18:30 36.4 C L 80 13 103/74 10/16/23 18:20 74 12 126/89 10/16/23 18:10 83 22 127/90 10/16/23 18:00 79 20 129/79 10/16/23 17:50 85 12 136/86 10/16/23 17:40 99 H 20 134/79 10/16/23 17:30 103 H 20 142/88 H 10/16/23 17:20 36.1 C L 101 H 18 143/85 H 10/16/23 14:54 37.0 C 95 H 18 135/88 10/16/23 14:00 81 13 10/16/23 13:30 83 7 L 10/16/23 13:12 93 H 15 136/88 10/16/23 13:11 136/88 10/16/23 13:11 92 H 13 10/16/23 13:00 83 24 10/16/23 12:30 86 23 10/16/23 12:10 91 H 15 10/16/23 12:05 91 H 21 10/16/23 11:50 88 12 10/16/23 11:40 94 H 23 10/16/23 11:30 99 H 13 10/16/23 11:20 10/16/23 11:14 10/16/23 11:00 85 18 10/16/23 10:50 78 23 10/16/23 10:40 87 18 10/16/23 10:30 90 26 H 10/16/23 10:20 88 19 10/16/23 10:10 87 20 10/16/23 10:02 91 H 10/16/23 10:00 92 H 20 10/16/23 09:59 89 20 10/16/23 08:51 36.8 C 106 H 14 172/117 H Pulse Ox O2 Del Method O2 Flow Rate 10/16/23 18:40 90 Nasal Cannula 3 10/16/23 18:30 88 L Nasal Cannula 3 10/16/23 18:20 93 Nasal Cannula 3 10/16/23 18:10 92 Nasal Cannula 3 10/16/23 18:00 91 Nasal Cannula 4 10/16/23 17:50 92 Oxymask 10 10/16/23 17:40 94 Oxymask 10 10/16/23 17:30 94 Oxymask 10 10/16/23 17:20 90 Oxymask 15 10/16/23 14:54 95 Room Air 10/16/23 14:00 96 10/16/23 13:30 94 10/16/23 13:12 96 Room Air 10/16/23 13:11 10/16/23 13:11 94 10/16/23 13:00 94 10/16/23 12:30 95 10/16/23 12:10 94 10/16/23 12:05 94 10/16/23 11:50 95 10/16/23 11:40 95 10/16/23 11:30 95 10/16/23 11:20 96 10/16/23 11:14 92 10/16/23 11:00 94 10/16/23 10:50 95 10/16/23 10:40 94 10/16/23 10:30 94 10/16/23 10:20 95 10/16/23 10:10 95 10/16/23 10:02 10/16/23 10:00 96 10/16/23 09:59 97 10/16/23 08:51 97 Room Air Pain Intensity Ear: Pain Intensity: 3 Transfer of Care Handoff Completed per policy Notes Mental Status: alert / awake / arousable and participated in evaluation Patient Amnestic to Procedure: Yes Nausea / Vomiting: adequately controlled Pain: adequately controlled Airway Patency, RR, SpO2: see Notes below BP & HR: stable & adequate Hydration State: stable & adequate Anesthetic Complications: no major complications apparent and see Notes below Notes: Pt had airway obstruction after extubation. Subsequently had low SaO2 in PACU. He is presently awake, VSS with SaO2 mid-80's on nasal oxygen. It is likely post-obstructive pulmonary edema. Treatment is supportive, in this case consisting of supplemental oxygen. Pt will require admission until SaO2 improves . Discussed w Pt, his and Dr. Morton. Admission is pending.
--- NOTE | 2023-10-16 19:12 | History & Physical Report ---
Date of Service October 16, 2023 Assessment & Plan (1) Complex laceration of right ear: Plan: Right ear complex laceration After striking ear on concrete and falling from a ladder CT of the head, face, chest, abdomen/pelvis, C-spine without acute traumatic findings other than right ear injury as noted Admit to medical/surgical Continue Augmentin [id number] p.o. twice daily for 10 days Outpatient follow-up to Dr. Morton on discharge With postoperative hypoxia, recommend for overnight observation. Suspected to have an episode of laryngeal spasm postop. Lungs are clear on exam, patient is not short of breath at the bedside. No cough. Will follow overnight, encouraged mental spirometry, if persistent oxygen requirement then will get chest x-ray in the morning. Morning labs ordered Titrate oxygen to 88%, will need CPAP at bedtime. No concurrent history of asthma to indicate bronchodilators. CPAP is ordered as at bedtime for sleep apnea, may use this if needed for continued symptoms. This may be challenging to use with his ear repair/dressing should not apply tension overlapping of the right ear repair. Discussed with respiratory will trial a nasal pillow, will be cautious not to apply a strap over lying the ear (2) Tobacco dependence due to chewing tobacco: Plan: Tobacco dependence Cessation recommended, patch offered (3) Alcohol use: Plan: Reports daily drinking around 4 drinks per day, last 1 several his activities without alcohol last week with no signs of withdrawal or shakes. At risk protocol ordered for monitoring (4) SHAHIDA (obstructive sleep apnea): Plan: SHAHIDA CPAP nightly (5) Anxiety: Plan: Anxiety/depression Continue Lexapro 10 mg daily (6) Hypertension: Plan: Hypertension Creatinine 0.88 admission Postop BP 140/86 Continue home telmisartan daily No lightheadedness/dizziness that led to his fall. Plan DVT prophylaxis: SCDs/ambulate immediately postop CODE STATUS: Full code Disposition: Medical/surgical Diet: Regular. Tolerating pretzels well at bedside, no cough or signs of aspiration. History of Present Illness Primary Care Provider: JULIANNE Saleh is a 43-year-old male with past medical history of tobacco use, SHAHIDA, alcohol use, hypertension, anxiety on Lexapro and telmisartan who presented to the ER for a right ear laceration when he hit his right ear on a concrete/metal open and being after carrying something up a ladder and subsequently falling approximately 8 feet landing on his right side but without loss of consciousness or head strike during the fall. CT of the face showed soft tissue swelling but no fractures. CT of the head, abdomen/pelvis, C-spine, and chest did not show any acute traumatic findings. Patient was taken to the OR for complex repair of his right ear laceration. He was recommended for inpatient admission overnight due to perioperative hypoxia of 88% on 2 L. Maged is seen at the bedside in PACU. He reports that he hit his head on an I- beam and fell from a ladder. He did not lose consciousness, but the fall happened fastings are all to this. No lightheadedness or dizziness. No chest pain or chest pressure. No shortness of breath. Pain is currently well- controlled. Abdominal pain. CT series as noted without acute trauma with the exception of his right ear. He denies history of asthma or COPD. Does have a history of SHAHIDA for which he uses CPAP religiously. Has a recent history of hypertension started telmisartan 1 month ago, and anxiety started Lexapro 2 months ago. Uses chew 1 can every other day. Drinks alcohol daily around 4 on average. Did go several days last week without alcohol with no shakes or withdrawal. Denies history of lung disease, heart disease, renal disease. No medication allergies. Took his medications this morning. Medical History: Reviewed Medications: Reviewed Surgical History: Reviewed Family history: Reviewed Allergies: Reviewed Social History: Chew 1 can per 2 days. etoh ~4 drinks in the evening Code Status: Full code Allergies Allergy/AdvReac Type Severity Reaction Status Date / Time bee venom protein (honey bee) Allergy Mild Verified 10/16/23 15:12 No Known Drug Allergies Allergy Unknown Verified 10/16/23 15:12 Home Medications Medication Instructions Recorded Confirmed Type escitalopram oxalate 10 mg tablet 10 mg PO DAILY #90 tabs 09/06/23 10/16/23 Rx cetirizine 10 mg tablet (Zyrtec) 10 mg PO DAILY PRN Allergy Symptoms 09/11/23 10/16/23 History telmisartan 40 mg tablet 40 mg PO DAILY #90 tabs 10/04/23 10/16/23 Rx amoxicillin 875 mg-potassium 1 tab PO Q12H facial laceration 10/16/23 Rx clavulanate 125 mg tablet #20 tabs hydrocodone 5 mg-acetaminophen 325 1 tab PO Q4H PRN pain #14 tabs 10/16/23 Rx mg tablet Past Med/Surg History Medical History (Updated 10/16/23 @ 14:24 by Kevin Valenzuela MD) Encounter for pre-operative examination Alcohol use Tobacco dependence due to chewing tobacco SHAHIDA (obstructive sleep apnea) Central serous retinopathy Anxiety Hypertension Surgical History No pertinent past surgical history Family History Father Lung cancer Grandfather Lung cancer Denies family history of Ovarian cancer Prostate cancer Myocardial infarction Breast cancer Colorectal cancer Social History Smoking Status: Current every day smoker Tobacco Type: Smokeless Tobacco (Dip or Chew) Age Quit Using Tobacco: 29; packs per day: 1; Cigarettes Per Day: currently chews; Do You Dip or Chew Tobacco: Yes; Hx Alcohol Use: Yes Alcohol type: beer Alcohol Intake Frequency: 4 or More x per/Week Alcohol Intake Frequency Comment: nightly Hx Substance Use: No Preferred Language: German Visual Impairment: No Limitations Hearing Ability: Normal Cotton Expert Required: No Beliefs That Will Affect Care: None marital status: Current Living Situation: Spouse Current Living Situation Comment: lives w/ spouse kids current occupational status: employed current occupation: [employer] How many Children do You have: 2 Feels Safe at Home: Yes Diet: regular caffeine: Yes during the past year weight has: remained stable Dental Care, Regularly: Yes Physical Activity Frequency: Daily Physical Exam Physical Exam: General: A&Ox3. NAD. Cooperative. HEENT: Postop dressing around ears intact, C/C/I. Vision intact without deficit. Hearing grossly intact Pulm: CTAB A&P. -wheezes, -rales, -rhonchi. Symmetrical chest rise. No increased work of breathing. No respiratory distress. Cardiac: RRR, -mrg. Radial pulses intact and symmetrical. Abdominal: Nontender, nondistended, soft. BS present. No hematoma, flank or back Extremities: Warm and dry Extremities: Moving all extremities equally. Results & Data Results & Data Vital Signs (Past 12 Hours) Vital Signs Temp Pulse Pulse Resp BP BP BP 10/16/23 18:55 82 20 132/82 10/16/23 18:40 78 18 140/86 10/16/23 18:30 36.4 C L 80 13 103/74 10/16/23 18:20 74 12 126/89 10/16/23 18:10 83 22 127/90 10/16/23 18:00 79 20 129/79 10/16/23 17:50 85 12 136/86 10/16/23 17:40 99 H 20 134/79 10/16/23 17:30 103 H 20 142/88 H 10/16/23 17:20 36.1 C L 101 H 18 143/85 H 10/16/23 14:54 37.0 C 95 H 18 135/88 10/16/23 14:00 81 13 10/16/23 13:30 83 7 L 10/16/23 13:12 93 H 15 136/88 10/16/23 13:11 136/88 10/16/23 13:11 92 H 13 10/16/23 13:00 83 24 10/16/23 12:30 86 23 10/16/23 12:10 91 H 15 10/16/23 12:05 91 H 21 10/16/23 11:50 88 12 10/16/23 11:40 94 H 23 10/16/23 11:30 99 H 13 10/16/23 11:20 10/16/23 11:14 10/16/23 11:00 85 18 10/16/23 10:50 78 23 10/16/23 10:40 87 18 10/16/23 10:30 90 26 H 10/16/23 10:20 88 19 10/16/23 10:10 87 20 10/16/23 10:02 91 H 10/16/23 10:00 92 H 20 10/16/23 09:59 89 20 10/16/23 08:51 36.8 C 106 H 14 172/117 H Pulse Ox O2 Del Method O2 Flow Rate 10/16/23 18:55 90 Nasal Cannula 3 10/16/23 18:40 90 Nasal Cannula 3 10/16/23 18:30 88 L Nasal Cannula 10/16/23 18:20 93 Nasal Cannula 3 10/16/23 18:10 92 Nasal Cannula 3 10/16/23 18:00 91 Nasal Cannula 4 10/16/23 17:50 92 Oxymask 10 10/16/23 17:40 94 Oxymask 10 10/16/23 17:30 94 Oxymask 10 10/16/23 17:20 90 Oxymask 15 10/16/23 14:54 95 Room Air 10/16/23 14:00 96 10/16/23 13:30 94 10/16/23 13:12 96 Room Air 10/16/23 13:11 10/16/23 13:11 94 10/16/23 13:00 94 10/16/23 12:30 95 10/16/23 12:10 94 10/16/23 12:05 94 10/16/23 11:50 95 10/16/23 11:40 95 10/16/23 11:30 95 10/16/23 11:20 96 10/16/23 11:14 92 10/16/23 11:00 94 10/16/23 10:50 95 10/16/23 10:40 94 10/16/23 10:30 94 10/16/23 10:20 95 10/16/23 10:10 95 10/16/23 10:02 10/16/23 10:00 96 10/16/23 09:59 97 10/16/23 08:51 97 Room Air Code Status & VTE Plan VTE Prophylaxis Plan VTE Prophylaxis will be ordered: Yes PG Care Time/CCT Total # of Minutes Spent Total Time Spent with Patient: Total time spent is greater than 50% in coordination of care (as documented) at patient's floor/unit and/or counseling patient: Coding Level of Care Code 34655 INT INP/OBS CARE 3/75MIN Diagnoses Complex laceration of right ear S01.311A Encounter type: initial encounter Tobacco dependence due to chewing tobacco F17.220 Alcohol use Z78.9 SHAHIDA (obstructive sleep apnea) G47.33 Anxiety F41.9 Hypertension I10 (1) Complex laceration of right ear Encounter type: initial encounter Qualified Code(s): S01.311A - Laceration without foreign body of right ear, initial encounter
[2023-10-16] MEDS ORDERED: LORazepam 1 MG TAB PO PRN (19:35)
--- NOTE | 2023-10-16 21:42 | Post Operative Brief Note ---
PG Immediate Post Op with CF Date of Surgery October 16, 2023 Pre & Post Diagnosis Operation Date: 10/16/23 09:30 Pre-Op Diagnosis: Complex laceration of right ear Post-Op Diagnosis: Complex laceration of right ear I identified the patient and participated in the time-out.: Yes Procedure Operation Date: 10/16/23 09:30 Actual Procedures p Complex Laceration Repair, Right Ear(Right) - Adalberto Morton DMD Surgeon Adalberto Morton, JERALD Tube Heater none Estimated Blood Loss 10 Findings Consistent with Post-Op Diagnosis complex ear laceration --right Specimens Specimen Description: No specimen per surgeon Anesthesia Type General Complications none Disposition Accompanied Patient To Recovery: Yes
[2023-10-16] MEDS: AMOXICILLIN/CLAVULANATE 875 MG TAB PO SCH (23:04)
[2023-10-17] MEDS: ESCITALOPRAM OXALATE 10 MG TAB PO SCH (07:48)
--- NOTE | 2023-10-17 08:13 | Anesthesiology Progress Note ---
Date of Service October 17, 2023 Assessment & Plan Admission and Anticipated Discharge Date Admission Date: October 16, 2023 Subjective Pt seen with at bedside. Reports having a restful, uneventful night on nasal O2. SaO2 now 98%. Pt states staff reduced O2 flow this morning. Impression: Post-obstructive pulmonary edema, improving. Further care as per medical staff. Discussed with pt that this event is not expected to have sequelae or implications for his future care. Physical Exam Vital Signs: Last Vital Signs Temp 36.8 C 10/17/23 07:44 Pulse 75 10/17/23 07:44 Resp 16 10/17/23 07:44 BP 143/83 H 10/17/23 07:44 Pulse Ox 98 10/17/23 07:44 O2 Del Method Nasal Cannula 10/17/23 07:44 O2 Flow Rate 3 10/17/23 07:44 Results & Data ([facility]) Medications Administered Amoxicillin/Clavulanate Potassium (Amoxicillin/Clavulanate 875 Mg Tab) 1 tab PO BIDM [facility]; Protocol Stop: 10/23/23 20:59 Last Admin: 10/17/23 07:48 Dose: 1 tab Documented By: Admin: 10/16/23 23:04 Dose: 1 tab Documented By: KEN Escitalopram Oxalate (Escitalopram Oxalate 10 Mg Tab) 10 mg PO DAILY [facility] Stop: 11/16/23 08:59 Last Admin: 10/17/23 07:48 Dose: 10 mg Documented By: GONSALO
--- NOTE | 2023-10-17 17:33 | Discharge Summary ---
Date of Service October 17, 2023 Admission HPI Per Admitting Provider Maged is a 43-year-old male with past medical history of tobacco use, SHAHIDA, alcohol use, hypertension, anxiety on Lexapro and telmisartan who presented to the ER for a right ear laceration when he hit his right ear on a concrete/metal open and being after carrying something up a ladder and subsequently falling approximately 8 feet landing on his right side but without loss of consciousness or head strike during the fall. CT of the face showed soft tissue swelling but no fractures. CT of the head, abdomen/pelvis, C-spine, and chest did not show any acute traumatic findings. Patient was taken to the OR for complex repair of his right ear laceration. He was recommended for inpatient admission overnight due to perioperative hypoxia of 88% on 2 L. Maged is seen at the bedside in PACU. He reports that he hit his head on an I- beam and fell from a ladder. He did not lose consciousness, but the fall happened fastings are all to this. No lightheadedness or dizziness. No chest pain or chest pressure. No shortness of breath. Pain is currently well- controlled. Abdominal pain. CT series as noted without acute trauma with the exception of his right ear. He denies history of asthma or COPD. Does have a history of SHAHIDA for which he uses CPAP religiously. Has a recent history of hypertension started telmisartan 1 month ago, and anxiety started Lexapro 2 months ago. Uses chew 1 can every other day. Drinks alcohol daily around 4 on average. Did go several days last week without alcohol with no shakes or withdrawal. Denies history of lung disease, heart disease, renal disease. No medication allergies. Took his medications this morning. Medical History: Reviewed Medications: Reviewed Surgical History: Reviewed Family history: Reviewed Allergies: Reviewed Social History: Chew 1 can per 2 days. etoh ~4 drinks in the evening Code Status: Full code Principal Diagnosis Right ear laceration requiring operative repair Postoperative hypoxia now resolved Discharge Exam Awake alert appropriate large bandage on his head. Card exam is regular lungs are clear Discharge Data Allergies Allergy/AdvReac Type Severity Reaction Status Date / Time bee venom protein (honey bee) Allergy Mild Verified 10/16/23 15:12 No Known Drug Allergies Allergy Unknown Verified 10/16/23 15:12 Consultations 10/16/23 12:24 Consult Oromaxillofacial Surgery Stat 10/16/23 18:42 Consult Hospitalist Stat Procedures Performed Operation Date: 10/16/23 09:30 Actual Procedures p Complex Laceration Repair, Right Ear(Right) - Adalberto Morton DMD Ordered Studies Head CT 10/16/23 09:12 CT OF THE HEAD WITHOUT CONTRAST CLINICAL HISTORY: R side of head trauma, fall 8 feet COMPARISON STUDY: No previous studies for comparison. TECHNIQUE: Helical axial images of the head were obtained without IV contrast. Automated exposure control was utilized for the study. A dose lowering technique was utilized adhering to the principles of ALARA. FINDINGS: No acute intracranial hemorrhage, midline shift or mass effect is present. The ventricular system is unremarkable. The basal cisterns are patent. No extra-axial collections are present. There are no findings to suggest acute dural sinus thrombosis or acute territorial infarct. No significant calvarial abnormalities are present. Visualized portions of the sinuses and mastoid air cells are clear. There is apparent right ear soft tissue swelling. IMPRESSION: 1. No acute intracranial findings. 2. No calvarial fractures. ACT 112: Negative or not required by law. Electronically signed by: Luis Eduardo Jackson M.D. 10/16/2023 10:18 AM Abdomen/Pelvis CT 10/16/23 09:[address] WITH IV CONTRAST CT DOSE: HISTORY: R side of head trauma, fall 8 feet TECHNIQUE: Multiaxial CT images of the abdomen and pelvis were performed following the use of intravenous contrast. A dose lowering technique was utilized adhering to the principles of ALARA. COMPARISON STUDY: None. FINDINGS: The lung bases will be reported on the same day chest CTA. No pneumoperitoneum. No pneumatosis. There is a right L5 pars defect noted. No acute fractures identified. Mild hepatic steatosis. The main portal vein is patent. The gallbladder, spleen, pancreas, adrenal glands, and kidneys are unremarkable. No hydronephrosis. Mild bilateral perinephric edema. This may be chronic. No retroperitoneal hematoma lymphadenopathy. Normal caliber abdominal aorta. No pelvic free fluid. Mild bladder wall thickening. The prostate gland is normal in size. No bowel wall thickening or obstruction. Normal appendix. IMPRESSION: 1. No acute traumatic process within the abdomen or pelvis. 2. Mild bladder wall thickening. This may be due to underdistention. Recommend correlation with urinalysis to exclude a cystitis. 3. Additional findings as described above. ACT 112: Negative or not required by law. Electronically signed by: Jose F Tejeda M.D. 10/16/2023 10:[address] 10/16/23 09:[address] DOSE: 4376.07 mGy.cm HISTORY: R side of head trauma, fall 8 feet TECHNIQUE: Multiaxial CT images of the cervical spine were performed and reformatted in the sagittal and coronal plane without the use of contrast. A dose lowering technique was utilized adhering to the principles of ALARA. COMPARISON: None. FINDINGS: No fractures. No subluxation. Prevertebral soft tissues and the C1-C2 interval are intact. No pneumothorax. IMPRESSION: No fractures within the cervical spine. ACT 112: Negative or not required by law. Electronically signed by: Jose F Tejeda M.D. 10/16/2023 10:[address] 10/16/23 09:17 CT OF THE CHEST WITH IV CONTRAST CLINICAL HISTORY: R side of head trauma, fall 8 feet COMPARISON STUDY: No previous studies for comparison. TECHNIQUE: Following IV administration of 94 mL of Optiray, helical axial images of the chest were obtained. Sagittal and coronal reconstructions were viewed as well as maximal intensity projections on an independent 3-D workstation. Automated exposure control was utilized for the study. A dose lowering technique was utilized adhering to the principles of ALARA. FINDINGS: There is no evidence for traumatic injury to the thoracic aorta. Size of the heart is normal. There is no pericardial effusion. Central airways are patent. No pneumothorax, pleural effusion or pulmonary contusion is present. Subpleural groundglass opacities reflect atelectasis. No acute rib or thoracic spine fracture is present. The abdomen and pelvis CT will be reported separately. IMPRESSION: No acute traumatic findings within the chest. ACT 112: Negative or not required by law. Electronically signed by: Luis Eduardo Jackson M.D. 10/16/2023 10:[address] 10/16/23 09:[address] DOSE: HISTORY: R side of head trauma, fall 8 feet TECHNIQUE: Multiaxial CT images of the maxillofacial region were performed and reformatted in the coronal plane without the use of contrast. A dose lowering technique was utilized adhering to the principles of ALARA. COMPARISON: None. FINDINGS: The visualized cervical spine, skull base, pterygoid plates, nasal bones, lamina papyracea, orbital floors, mandible, and zygomatic arches are intact. No fractures. The orbits are unremarkable. Soft tissue swelling within the right ear with a soft tissue laceration. This is partially visualized on this study. The underlying right mastoid bone is intact. IMPRESSION: 1. No fractures within the maxillofacial region. 2. Soft tissue swelling within the right ear with a soft tissue laceration. This is partially visualized on this study ACT 112: Negative or not required by law. Electronically signed by: Jose F Tejeda M.D. 10/16/2023 10:20 AM Hospital Course (1) Complex laceration of right ear: Right ear complex laceration After striking ear on concrete and falling from a ladder CT of the head, face, chest, abdomen/pelvis, C-spine without acute traumatic findings other than right ear injury as noted Patient did well with observation overnight hypoxia has resolved will be discharged per Dr Morton's original discharge orders Continue Augmentin [id number] p.o. twice daily for 10 days Outpatient follow-up to Dr. Morton on discharge postoperative hypoxia, two-step oxygen test prior to discharge was without need for oxygen supplementation (2) Tobacco dependence due to chewing tobacco: Tobacco dependence Cessation recommended, (3) Alcohol use: Reports daily drinking around 4 drinks per day, last 1 several his activities without alcohol last week with no signs of withdrawal or shakes. At risk protocol ordered for monitoring (4) SHAHIDA (obstructive sleep apnea): SHAHIDA CPAP nightly (5) Anxiety: Anxiety/depression Continue Lexapro 10 mg daily (6) Hypertension: Hypertension home telmisartan daily Plan CODE STATUS: Full code Total Time Total Time Spent Total Time Spent (In Minutes): It required greater than 30 minutes to prepare this patient for discharge. Discharge Plan Discharge Items Patient Disposition: Home - Self-Care Reason For Visit: HYPOXIA S/P GA Discharge Diagnosis: repair of ear laceration right transient post operative low oxygen level Condition on Discharge: Good Activity: As commented below Activity Comment: take it easy until I see you to remove the ear dressing Lifting: No more than 10 pounds Bathing: Keep incision dry Exercise/Sports: Wait until after follow-up appointment Non-emergency contact: Primary Care Provider and Surgeon Call non-emergency contact if: your temperature is above 101.5, your wound has increased redness, your wound has increased drainage and your wound pain has increased Follow-up/Referrals: Dann Quevedo CRNP [Primary Care Provider] - 10/24/23 10:20 am (APPOINTMENT WITH GENARO LOMAS) Adalberto Morton DMD [Physician] - 10/19/23 1:00 pm Diet: Regular Addtl Attending Provider Instructions: ADDITIONAL ACTIVITY RECOMMENDATIONS: Keep the dressing in place until I see your afternoon SPECIAL CARE INSTRUCTIONS: *It is not uncommon that between day 2-4 that your swelling will be at its worst this is very normal, do not be alarmed. * Keep ice on the side of your face for the next 24 to 36 hours. This will help keep the swelling down. * A certain amount of bleeding is to be expected. It is often possible to control mild oozing by placing folded gauze over the area and biting down for 30 minutes. If you are unable to control excessive bleeding, call Dr Morton at [phone] * You may experience some discomfort for a few days. If pain or swelling increases, Call Dr Morton * Return to the office for a follow up check up on: October 18 at 4:30 PM dressing removal * office address--[facility] [address]. phone # [phone] Pending Studies at Discharge: Yes Stand-Alone Forms: Anesthesia/Sedation, Adult, [facility] Medications and DC Order Prescriptions: Continued escitalopram oxalate 10 mg tablet 10 mg PO DAILY Qty: 90 2RF telmisartan 40 mg tablet 40 mg PO DAILY Qty: 90 2RF hydrocodone-acetaminophen 5-325 mg tablet 1 tab PO Q4H PRN (Reason: pain) Qty: 14 0RF amoxicillin-pot clavulanate 875-125 mg tablet 1 tab PO Q12H Qty: 20 0RF cetirizine [Zyrtec] 10 mg tablet 10 mg PO DAILY PRN (Reason: Allergy Symptoms) Discharge Orders: Discharge Order (Routine); Ordered 10/17/23 Ordered By: Mike Grijalva/Other Patient Handouts: DVT Post Op Prevention Admission Data Admit Date/Time: 10/16/23 19:04 Attending Provider: Mike Carias Admit Provider: Juan Murphy Primary Care Provider: Dann Quevedo Other Providers: Yuan Escoto; Natasha Leos; Vaughn Sousa; Anival Goins; Mike Carias; Maged Eugene; Becca Galelgo; Adore Cabrera; Jayne Caldwell; Yon Morales; Payam Alvarado; Adrianna Noriega; Jermain Mccauley; Vaughn Avitia; Jose F Yates; Kristine Appiah; Aishwarya Marquis; Aishwarya Navarro; Taz Aly; Sandra Pittman; Medhat Yun; Juan Murphy; Geovanna Gilbert; Yessica Canchola; Jessie Casey; Steve Rios; Nieves Coyne; Anival Funez; Mike Steve; Fatou Jensen; Adalberto Morton Other Interventions: Discharge Summary Assessment (RN) Last Done: 10/17/23 09:53 Coding Level of Care Code 73744 INP/OBS DISCH >30 MIN Diagnoses Complex laceration of right ear S01.311A Encounter type: initial encounter Tobacco dependence due to chewing tobacco F17.220 Alcohol use Z78.9 SHAHIDA (obstructive sleep apnea) G47.33 Anxiety F41.9 Hypertension I10
--- NOTE | 2023-10-26 22:15 | Operative Report ---
PG Post Operative Report Pre & Post Diagnosis Operation Date: 10/16/23 09:30 Pre-Op Diagnosis: Complex laceration of right ear Post-Op Diagnosis: Complex laceration of right ear I identified the patient and participated in the time-out.: Yes Procedure Operation Date: 10/16/23 09:30 Actual Procedures p Complex Laceration Repair, Right Ear(Right) - Adalberto Morton, JERALD Surgeon Adalberto Morton, JERALD Television Production Clerk none Estimated Blood Loss 10 Findings Consistent with Post-Op Diagnosis Specimens none Drains none Anesthesia Type General Complications none Disposition Accompanied Patient To Recovery: Yes Indications complex ear laceration (right) Description of Procedure ADMITTING DIAGNOSES: Facial Laceration Diagnoses Fall from ladder W11.XXXA Encounter type: initial encounter Contusion of parietal region of scalp S00.03XA Encounter type: initial encounter Complex laceration of right ear S01.311A Encounter type: initial encounter Alcohol use Z78.9 Tobacco dependence due to chewing tobacco F17.220 SHAHIDA (obstructive sleep apnea) G47.33 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 Then brought down to the operating room placed under general anesthesia via a oral tracheal intubation. After an adequate level of anesthesia was obtained, an appropriate time-out was taken to ensure that we had in our operating room Maged Feliz with the proper equipment. After everyone agreed, the operation began. At this time,the patient was deeply anesthetized and the tubes were secured. The patient was prepped and draped in the usual manner for the complex right ear laceration repair. local anesthesia in the form of Marcaine with a vasoconstrictor, approximately 4 carpules of the local anesthesia were injected into the area to allow for local anesthetic effect. I reprepped and regloved, and turned my attention to the laceration. The ear laceration was approximately 3 cm long. It was very irregular. It was a [id number] laceration through the cartilage and skin transecting the ear through the middle of the helix. It was actually a degloving laceration exposing all and transecting the cartilage. I used an electrocautery instrument and cauterized any bleeders. The wound was irrigated and scrubbed. A cotton packing was placed into the right EAC. The closure of the laceration was now started using 4-0 Vicryl suture to line up cartilage skeletal anatomy from the EAC to the helix. Once the anatomy of the cartilage was aligned I started to close this very irregular thin skin over the cartilage. The skin was closed with a combination of 6 and 5-0 Vicryl suture. A very nice cosmetic closure of this irregular laceration was achieved. I now was able to close the deep post articular aspect of the laceration with a 5-0 and 4-0 Vicryl suture. I now placed a heavy pressure dressing to prevent a hematoma I will Maged in my office in a few days. At this time, the patient was allowed to recover in the usual manner and then once he was fully recovered and moved to the recovery room. The patient tolerated the procedure very well. I anticipate an uneventful postoperative course. Bright: repair of a complex 4 cm laceration of the chin. I attest to the content of the Intraoperative Record and any orders documented therein. Any exceptions are noted below.
== END 2023-10-17 10:47 | disposition home or self-care (01) ==
LOC: ED 08:48 → OR 14:47 → 3W 14:47 → SUATTDRO 19:04
DX: W11.XXXA Fall on and from ladder, initial encounter; I10 Essential (primary) hypertension; F17.220 Nicotine dependence, chewing tobacco, uncomplicated; S01.311A Laceration without foreign body of right ear, initial encounter; F41.9 Anxiety disorder, unspecified; S00.03XA Contusion of scalp, initial encounter; Z91.013 Allergy to seafood; Z79.899 Other long term (current) drug therapy; G47.33 Obstructive sleep apnea (adult) (pediatric)